=== PATIENT | female | born 2005 | race Caucasian/White ===

== ENCOUNTER 2025-02-12 19:00 | Emergency (ER) | payer BC ==
[2025-02-12] MEDS: Amoxicillin/Clavulanate K 875-125 MG Tab PO ONE (19:54)
[2025-02-12] MEDS: Dexamethasone 4 MG/ML SDV PO ONE (19:57)
== END 2025-02-12 20:01 | disposition home or self-care (01) ==
LOC: JD.ED 19:00
DX: H66.91 Otitis media, unspecified, right ear (principal); J02.9 Acute pharyngitis, unspecified; H10.9 Unspecified conjunctivitis; Z79.899 Other long term (current) drug therapy
CPT/HCPCS: 99282; A9270; J1100